=== PATIENT | female | born 1985 | race African-American/Black ===

== ENCOUNTER 2017-08-27 06:20 | Inpatient (IN) | payer BC ==
[2017-08-27] MEDS ORDERED: PROPOFOL 40 ML (06:56)
[2017-08-27] MEDS ORDERED: ROCURONIUM 50 MG INJ (06:56)
[2017-08-27] MEDS ORDERED: DEXAMETHASONE 4 MG/ML 1 ML INJ (06:57)
[2017-08-27] MEDS ORDERED: FENTAnyl 50 MCG/ML VIAL (06:57)
[2017-08-27] MEDS ORDERED: FAMOTIDINE 20 MG INJ (06:57)
[2017-08-27] MEDS ORDERED: MIDAZOLAM 1 MG/ML 2 ML INJ (06:57)
[2017-08-27] MEDS ORDERED: ONDANSETRON 4 MG INJ (06:57)
[2017-08-27] MEDS ORDERED: CEFAZOLIN 1 GM INJ (07:00)
[2017-08-27] MEDS ORDERED: SUCCINYLCHOLINE CHLORIDE 100 MG/5 ML SYG IV (07:00)
[2017-08-27] MEDS ORDERED: LIDOCAINE 2% (SDV) 5 ML INJ (07:00)
[2017-08-27] MEDS ORDERED: ACETAMINOPHEN 1000MG/100ML IV 100 ML (07:33)
[2017-08-27] MEDS: LACTATED RINGER'S 1,000 ML IV* (08:00)
[2017-08-27] MEDS ORDERED: CEFAZOLIN 2 GM/50 ML (PMX) 50 ML IVPB (08:00)
[2017-08-27] MEDS ORDERED: ROPIVACAINE 0.5 % 30 ML VIAL (08:41)
[2017-08-27] MEDS ORDERED: SUGAMMADEX SODIUM 200 MG/2 ML VIAL IV (08:54)
[2017-08-27] MEDS ORDERED: HYDROmorphONE (0.2 MG/ML) 10ML SYG IV ×4 (09:00→11:00)
[2017-08-27] MEDS ORDERED: FENTAnyl 50 MCG/ML VIAL IV (09:00)
[2017-08-27] MEDS ORDERED: DIPHENHYDRAMINE 50 MG INJ IV (09:00)
[2017-08-27] MEDS: HYDROmorphONE (0.2 MG/ML) 10ML SYG IV ×3 (09:50→10:39)
[2017-08-27] MEDS: FENTAnyl 50 MCG/ML VIAL IV ×2 (09:51→10:13)
[2017-08-27] MEDS: MEPERIDINE 25 MG INJ IV ×2 (09:52→11:39)
[2017-08-27] MEDS ORDERED: HYDROmorphONE 0.2 MG/ML PCA (11:04)
[2017-08-27] MEDS: HYDROmorphONE 0.2 MG/ML PCA IV (11:04)
[2017-08-27] MEDS: LACTATED RINGER'S 500 ML IV* ×2 (12:32→17:27)
[2017-08-27] MEDS: SOD CHLORIDE 0.9% 1,000 ML IV (22:22)
[2017-08-27] MEDS: FAMOTIDINE 20 MG INJ IV (23:12)
[2017-08-28] MEDS: HYDROmorphONE 0.2 MG/ML PCA IV ×2 (01:01→13:29)
[2017-08-28] MEDS: SOD CHLORIDE 0.9% 1,000 ML IV ×2 (08:48→18:00)
[2017-08-28] MEDS: FAMOTIDINE 20 MG INJ IV ×2 (08:49→21:28)
[2017-08-28] MEDS: LACTATED RINGER'S 1,000 ML IV (16:35)
[2017-08-28] MEDS ORDERED: IBUPROFEN 600 MG TAB PO (17:00)
[2017-08-28] MEDS ORDERED: ACETAMINOPHEN 325 MG TAB PO (17:00)
[2017-08-28] MEDS ORDERED: HYDROCODONE/APAP (5/325) TAB PO (17:00)
[2017-08-28 17:15] LABS: ADD MAN DIFF? NO
[2017-08-28 17:16] LABS: BASOPHILS % 0.1 % (0.0-2.0); EOSINOPHILS % 0.1 % (0.0-7.0); HEMATOCRIT 33.1 % (37.0-47.0); HEMOGLOBIN 11.3 g/dl (12.0-16.0); LYMPHOCYTES # 2.2 10^3/ul (0.8-2.9); LYMPHOCYTES % 28.7 % (15.0-51.0); MEAN CORPUSCULAR HEMOGLOBIN 33.6 pg (29.0-33.0); MEAN CORPUSCULAR HGB CONC 34.1 g/dl (32.0-37.0); MEAN CORPUSCULAR VOLUME 98.5 fl (82.0-101.0); MEAN PLATELET VOLUME 9.7 fl (7.4-10.4); MONOCYTE # 0.4 10^3/ul (0.3-0.9); MONOCYTES % 5.7 % (0.0-11.0); NEUTROPHIL # 4.9 10^3/ul (1.6-7.5); NEUTROPHILS % 65.1 % (39.0-77.0); PLATELET COUNT 243 10^3/UL (140-415); RED BLOOD COUNT 3.36 10^6/ul (4.20-5.40); RED CELL DISTRIBUTION WIDTH 12.2 % (11.5-14.5)
[2017-08-28 17:16] LABS: WHITE BLOOD COUNT 7.5 10^3/ul (4.8-10.8)
[2017-08-28] MEDS: IBUPROFEN 600 MG TAB PO (18:25)
[2017-08-28] MEDS: HYDROCODONE/APAP (5/325) TAB PO (18:25)
[2017-08-29] MEDS: IBUPROFEN 600 MG TAB PO ×4 (00:22→18:31)
[2017-08-29] MEDS: HYDROCODONE/APAP (5/325) TAB PO ×3 (02:14→13:08)
[2017-08-29] MEDS: FAMOTIDINE 20 MG INJ IV (08:51)
[2017-08-29] MEDS: morphine 2 MG INJ IV (16:23)
== END 2017-08-29 20:10 | disposition home or self-care (01) | DRG 743 ==
LOC: REC 06:20 → MS2 11:35
PROVIDERS: Obstetrics & Gynecology
PROC: 0UB20ZZ Excision of Bilateral Ovaries, Open Approach (ICD-10-PCS; principal; 2017-08-27 07:30)
PROC: 0UB70ZZ Excision of Bilateral Fallopian Tubes, Open Approach (ICD-10-PCS; 2017-08-27 07:30)
DX: N83.201 Unspecified ovarian cyst, right side (principal); Z30.2 Encounter for sterilization; N83.202 Unspecified ovarian cyst, left side
CPT/HCPCS: 84703; 85025; 86850; 86900; 86901; 86920; 88305